=== PATIENT | male | born 1985 | race Hispanic/Latino ===

== ENCOUNTER 2018-12-06 17:00 | Emergency (ER) | payer OTHER, BC, SELFPAY ==
[2018-12-06 17:01] VITALS: BP 148/78; PULSE 70; RESP 16; TEMP 36.3; O2SAT 99; BMI 30.4
--- NOTE | 2018-12-06 17:47 | ED.VIS.GEN ---
History of Present Illness Chief Complaint: Suture Remv Informant: Patient Narrative: Patient here for suture removal. [id number]. Sustained laceration to his right thumb pad with 7 sutures placed 10 days ago. He has had no issues, pain, discharge, fevers. Past Medical History - Allergies and Home Meds Allergies/Adverse Reactions: Allergies Unable to Assess Allergy (Verified 12/06/18 17:02) Primary Care Physician: NOT,DEFINED [Primary Care Provider] - Past Medical History: None Smoking Status: Unknown if ever smoked Drugs: None Review of Systems General: Denies: Chills, Fever Musculoskeletal: Denies: Swelling, Extremity Pain Physical Exam Vital Signs/Narrative: Vital Signs Temp Pulse Resp BP Pulse Ox 12/06/18 17:01 97.4 F L 70 16 148/78 H 99 Inital Vital Signs reviewed: Yes General: Well nourished, Well developed, No Acute Distress Head: Normocephalic, Atraumatic Extremities: Nontender, No edema, - - Full range of motion right thumb Skin: Normal color, No rash, - - Laceration clean, dry, intact with 7 simple interrupted nylon sutures to the pad of the right thumb. No sign of infection, discharge, dehiscence. Neurological: Alert, Oriented x3, Cranial nerves II-XII grossly intact, Normal Strength, Normal Sensation Diagnostic/Tx/Re-eval - Medical Decision Making Patient advised to continue keeping it clean and dress it with antibiotic ointment, this laceration should heal without problem if he takes care of it, which I relayed. Procedures Procedure(s): Suture removal --#7 simple interrupted sutures removed without pain or complication with the exception of slight dehiscence of the epidermis at the proximal and distal aspects of the laceration. The dermis is intact, there is no bleeding. Dressed with bacitracin and bulky gauze dressing. ED Disposition - Plan for ED Patient: Disposition: Home or Assisted Living Diagnosis: Encounter for removal of sutures Instructions: ED Wound Check Sutr Remove No Infec Referrals: Leelee Wiley [NON-STAFF] - (as needed)
== END 2018-12-06 18:05 | disposition home or self-care (01) ==
LOC: ED 18:04
PROVIDERS: Emergency Provider Emergency Medicine
DX: Z48.02 Encounter for removal of sutures (principal)
CPT/HCPCS: 99282